=== PATIENT | male | born 1960 | race Caucasian/White ===

== ENCOUNTER → 2022-02-19 | Outpatient (CLI) | payer BC | LOC: MRI 07:53 | DX: K76.9 Liver disease, unspecified (principal); R59.9 Enlarged lymph nodes, unspecified | CPT/HCPCS: 74183; A9577 ==

== ENCOUNTER → 2022-02-24 | Outpatient (CLI) | payer BC ==
[2022-02-24 09:32] LABS: HEMOGLOBIN 13.7 gm/dl (14.0-17.5); RED BLOOD COUNT 3.84 M/UL (4.20-5.50); WHITE BLOOD COUNT 5.4 K/UL (4.5-11.0)
== END ==
LOC: US 08:59
PROVIDERS: Radiology Diagnostic Radiology
DX: K76.9 Liver disease, unspecified (principal)
CPT/HCPCS: 85027; 85610

== ENCOUNTER → 2022-03-13 | Outpatient (CLI) | payer BC, OTHER ==
[~2022-03-13] VITALS: Ht 182.9 cm; Wt 69.9 kg
[~2022-03-13] MED LIST: BENICAR5 MG PO
[2022-03-13 10:07] LABS: HEMOGLOBIN 13.9 gm/dl (14.0-17.5); RED BLOOD COUNT 3.96 M/UL (4.20-5.50); WHITE BLOOD COUNT 5.3 K/UL (4.5-11.0)
== END ==
LOC: US 09:35
PROVIDERS: Radiology Diagnostic Radiology
PROC: 0FB23ZX Excision of Left Lobe Liver, Percutaneous Approach, Diagnostic (ICD-10-PCS; principal; 2022-03-13)
DX: R16.0 Hepatomegaly, not elsewhere classified (principal); C22.0 Liver cell carcinoma
CPT/HCPCS: 36415; 76942; 85027; 85610

== ENCOUNTER → 2022-03-26 | Day surgery (SDC) | payer BC ==
[~2022-03-26] MED LIST changes: +PROTONIX 40 MG40 M1 PO
== END | disposition home or self-care (01) ==
LOC: OR 06:22
DX: Z12.11 Encounter for screening for malignant neoplasm of colon (principal); D12.2 Benign neoplasm of ascending colon; D12.3 Benign neoplasm of transverse colon; D12.4 Benign neoplasm of descending colon; K22.70 Barrett's esophagus without dysplasia; K57.30 Diverticulosis of large intestine without perforation or abscess without bleeding; K64.1 Second degree hemorrhoids; K44.9 Diaphragmatic hernia without obstruction or gangrene; C22.0 Liver cell carcinoma; K31.9 Disease of stomach and duodenum, unspecified; I10 Essential (primary) hypertension; F17.210 Nicotine dependence, cigarettes, uncomplicated
CPT/HCPCS: J2704; J7040

== ENCOUNTER → 2022-03-27 | Outpatient (CLI) | payer BC ==
[2022-03-27 10:35] LABS: BUN/CREATININE RATIO 20 (0-10)
== END ==
LOC: CT 08:30
PROVIDERS: Internal Medicine Hematology & Oncology
DX: C22.0 Liver cell carcinoma (principal); K76.9 Liver disease, unspecified
CPT/HCPCS: 36415; 71260; 80053; Q9967